=== PATIENT | male | born 1960 | race Caucasian/White ===

== ENCOUNTER 2017-11-27 15:59 | Day surgery (SDC) | payer MEDICARE, SELFPAY ==
[2017-11-27 16:13] VITALS: BP 107/87; PULSE 92; RESP 20; TEMP 36.4; O2SAT 93
[2017-11-27 16:16] VITALS: BP 107/87; PULSE 92; RESP 20; TEMP 36.4; O2SAT 93
--- NOTE | 2017-11-27 16:20 | PC.NURSE ---
gave sx to sx secretions
--- NOTE | 2017-11-27 16:48 | ED.ABDPAIN ---
HPI - Abdominal Pain General Chief Complaint: Abdominal Pain Stated Complaint: Food bolus stuck Time Seen by Provider: 11/27/17 16:48 Source: patient and EMS Mode of arrival: EMS Limitations: no limitations History of Present Illness HPI narrative: Patient is a 57-year-old male sent over from the [facility] for esophageal foreign body. Surgery is already made aware of the patient. Last night he was eating meat a large piece of pork which she felt has gotten stuck. He has been unable to swallow today he has tried to vomit several times but been unsuccessful. He does have a history of Parkinson's disease. At this time is he appears comfortable MD complaint: other (Esophageal foreign body) Related Data Home Medications Medication Instructions Recorded Confirmed amlodipine 5 mg PO DAILY 11/27/17 11/27/17 hydrochlorothiazide 25 mg PO DAILY 11/27/17 11/27/17 losartan 100 mg PO DAILY 11/27/17 11/27/17 sertraline 2 tab PO DAILY 11/27/17 11/27/17 tamsulosin 1 cap PO QPM 11/27/17 11/27/17 Previous Rx's Medication Instructions Recorded omeprazole 10 mg PO QDAY #90 cap 02/28/16 amantadine HCl 100 mg PO BID #180 cap 05/30/17 carbidopa-levodopa 1 tab PO SEE INSTRUCTIONS #360 tab 05/30/17 ropinirole 0.5 mg PO TID #275 tab 05/30/17 Allergies Allergy/AdvReac Type Severity Reaction Status Date / Time bee venom protein (honey bee) Allergy Unknown Verified 11/27/17 19:16 codeine Allergy Unknown Verified 11/27/17 19:17 Review of Systems Review of Systems All systems reviewed & are unremarkable except as noted in HPI and below Constitutional Denies chills, Denies fever(s), Denies lethargy and Denies weakness ENT Ears, Nose, Mouth, and Throat: Reports as per HPI Cardiovascular Denies dyspnea and Denies dyspnea on exertion Respiratory Denies cough, Denies dyspnea, Denies dyspnea on exertion and Denies wheezing Musculoskeletal Denies back pain, Denies muscle weakness, Denies numbness and Denies tingling Integumentary/Breasts Denies pruritus, Denies erythema, Denies rash and Denies wounds Neurologic Denies numbness, Denies tingling and Denies weakness Allergic/Immunologic Denies wheezing PFSH Medical History Parkinsons disease (Chronic) Family History Brother Cancer Father Cancer Social History Smoking Status: Current some day smoker alcohol intake: current substance use type: does not use Exam Initial Vital Signs Initial Vital Signs: Vital Signs Temperature 97.5 F L 11/27/17 16:13 Pulse Rate 92 H 11/27/17 16:13 Respiratory Rate 20 11/27/17 16:13 Blood Pressure 107/87 11/27/17 16:13 Pulse Oximetry 93 11/27/17 16:13 GENERAL: Alert well-appearing male in no acute distress has suction HEENT: Head atraumatic,EOMI, pupils reactive, CARDIOVASCULAR: Regular rate and rhythm without murmurs, rubs or gallops. RESPIRATORY: Breath sounds equal bilaterally, no wheezes rales or rhonchi. No stridor managing secretions ABDOMEN: Soft, nontender. Normoactive bowel sounds all 4 quadrants. No guarding or rebound. EXTREMITIES: Normal range of motion, no clubbing or edema. Neurovascularly intact NEUROLOGICAL: Alert and oriented x4.Normal gait and speech. SKIN: Warm, dry, no laceration, no petechiae, no rashes or lesions. Course Orders Ordered: Fentanyl (Sublimaze) 25 mcg IV Q5MIN PRN PRN Reason: Pain, Mild (1-3) Ondansetron HCl (Zofran) 4 mg IV NOW PRN PRN Reason: Nausea And Vomiting Discontinued Medications Lactated Ringer's (Lactated Ringers) 1,000 mls @ 42 mls/hr IV CONT MACIEJ Vital Signs - 8 hr 11/27/17 16:13 11/27/17 16:16 Temperature 97.5 F L 97.5 F L Pulse Rate 92 H 92 H Respiratory Rate 20 20 Blood Pressure 107/87 Blood Pressure [Left Arm] 107/87 Pulse Oximetry 93 93 MDM - Abdominal Pain MDM Narrative Medical decision making narrative: Dr. Langford made aware of patient's presence which he has accepted. In the ED to evaluate patient. Patient going to outpatient surgery. Discharge Plan Departure Patient Disposition: Admitted as Observation Clinical Impression: Esophageal foreign body Discharge Date/Time: 11/27/17 18:05 Interventions: ED Discharge Assessment Last Done: 11/27/17 18:02
--- NOTE | 2017-11-27 17:31 | PM.HP.1 ---
History of Present Illness Date Patient Seen: 11/27/17 Time Patient Seen: 17:10 Chief complaint: Food bolus stuck Narrative: Patient is a gentleman who was eating pork. At about 11 30 last night he had a piece tooth stuck in his esophagus. This is happened before. He has usually been able to cough and upper chart down but it is stated large. He is here for removal. He was transferred from the ER at [facility] to their lack of endoscopist. Patient History Medical History Parkinsons disease (Chronic) Family & Social History Social History: Smokes 5 cigarettes a day and has for very long time Meds Home Medications Medication Instructions Recorded Confirmed Type omeprazole 10 mg PO QDAY #90 cap 02/28/16 11/27/17 Rx amantadine HCl 100 mg PO BID #180 cap 05/30/17 11/27/17 Rx carbidopa-levodopa 1 tab PO SEE INSTRUCTIONS #360 tab 05/30/17 11/27/17 Rx ropinirole 0.5 mg PO TID #275 tab 05/30/17 11/27/17 Rx amlodipine 5 mg PO DAILY 11/27/17 11/27/17 History hydrochlorothiazide 25 mg PO DAILY 11/27/17 11/27/17 History losartan 100 mg PO DAILY 11/27/17 11/27/17 History sertraline 2 tab PO DAILY 11/27/17 11/27/17 History tamsulosin 1 cap PO QPM 11/27/17 11/27/17 History Allergies Allergy/AdvReac Type Severity Reaction Status Date / Time BEE VENOM Allergy Unknown Uncoded 07/04/17 12:10 CODEINE Allergy Unknown Uncoded 07/04/17 12:10 Review of Systems Review of Systems Patient denies double vision pain is eyes earache sore throat. He is missing his upper teeth and has trouble chewing because of that. No heart problems that he is aware of. He does have some respiratory issues and is about to undergo testing. No active cough or cold at this time. No black or bloody bowel movements. Last colonoscopy was 2 and half years ago. He had some polyps. No trouble urinating at this time. He is on an alpha boo however. No seizures or blackouts. Exam Vital Signs (past 8 hours): - 11/27/17 16:13 11/27/17 16:16 Temperature 97.5 F L 97.5 F L Pulse Rate 92 H 92 H Respiratory Rate 20 20 Blood Pressure 107/87 Blood Pressure [Left Arm] 107/87 Pulse Oximetry 93 93 Oxygen Delivery Method Room Air Narrative Exam Narrative: Operative gentleman no apparent distress. His eyes are nonicteric . pupils equal round react to light. Conjunctivae are pink. Ears without lesion. Nasal septum midline without polyps. Oral mucosa is dry. No upper teeth. Missing molars in the lower. There are no nodes in the neck or supraclavicular areas. Trachea is midline and mobile. Thyroid is not enlarged. There are no masses in the neck or thyroid. Lungs are clear to auscultation without rales or rhonchi. Increased expiratory phase. Equal percussion. Heart regular rate and rhythm without murmur gallop. No bruit in the neck. His abdomen is mildly protuberant soft. Liver and spleen are not enlarged. There are no ventral hernias. Patient is alert and oriented x3. Speech rate and content are appropriate. Affect is appropriate. Extraocular movements are intact times midline face is symmetric and uvula elevates in the midline. Patient has a tremor at rest. The right seems to be greater than the left. Assessment & Plan Plan: Assessment/Plan Narrative: Patient with an obstructed esophagus from food. Recommend EGD and possible dilatation. Would do this under general anesthesia to protect his airway as I often after irrigated out a great deal in order to flush this through. Also, when avoid getting food into his airway. Risks of bleeding and perforation were discussed. He appears to understand. Wishes to proceed. Parkinson's disease will continue his regular medication if he stays. If he is discharged tonight he can resume them at home. Hypertension same as above.
--- NOTE | 2017-11-27 18:06 | PM.PREOP ---
Pre-operative Note Interval Note Pre-op Check: Yes History & Physical exam performed today by Physician Changes: No
[2017-11-27 18:10] VITALS: BP 123/88; PULSE 79; RESP 16; TEMP 36.4; O2SAT 97
--- NOTE | 2017-11-27 19:00 | PM.OP.ENDO ---
Operative Date/Time/Diagnoses Date of procedure: 11/27/17 Time of procedure: 19:00 Pre-op diagnosis: Obstructed esophagus from food Post-op diagnosis: same (History of esophagus obstructed with food. Food had passed by the time the endoscope was placed) Procedure & Clinicians Study performed: EGD Same procedure as scheduled: Yes Indications: Obstructed esophagus by history. Surgeon: Gennaro Langford Procedure Notes SCOAP/Timeout: Perform Procedure in detail: The patient was placed supine on stretcher in the GI lab. He underwent general endotracheal anesthesia to protect his airway. A bite block was inserted adjacent to the ET tube and the scope was passed under direct vision into the esophagus. The esophagus was fairly normal. There was an area of ulceration in the distal esophagus at the GE junction located at about 34 cm from the incisors. This is probably where his food was lodged. It passed through by the time the scope was passed into his esophagus. I could see no evidence of a food bolus. The stomach insufflated well. There were no ulcerations. The pyloric channel was patent and the duodenum was normal to the 4th part. The scope was brought back into the stomach and retroflexed. Proximal stomach was normal in appearance. The patient was noted to have a small hiatal hernia. Scope was brought back through the esophagus and there was no evidence of any perforation. The GE junction was not particularly narrow as the scope passed easily through it with plenty of space decided. The scope was removed and the patient tolerated the procedure well. Scope withdrawal time: Not applicable Sedation minutes: 0 Findings: hiatal hernia (Very small) Specimen(s): none sent Complications: none Plan for aftercare: Cut up your food into very small bite size pieces before chewing and swallowing. Get your teeth fixed so that you have teeth to chew with. Follow up: as needed Disposition: PACU
[2017-11-27 19:37] VITALS: BP 100/69; PULSE 88; RESP 20; TEMP 36.1; O2SAT 96
--- NOTE | 2017-11-27 19:46 | SUR.PHASEII ---
IVF infused was 500ml. unable to chart IVF in [facility]
== END 2017-11-27 19:37 | disposition home or self-care (01) ==
LOC: ED 18:01 → OR 05-20 15:45
PROVIDERS: Emergency Provider Emergency Medicine; Visit Provider Specialist
PROC: 0DJ08ZZ Inspection of Upper Intestinal Tract, Via Natural or Artificial Opening Endoscopic (ICD-10-PCS; CPT 43235; principal; 2017-11-27 15:30)
DX: G20 Parkinson's disease (principal); F17.210 Nicotine dependence, cigarettes, uncomplicated; I10 Essential (primary) hypertension
CPT/HCPCS: 43235; 99283; 99285; J2704; J3010

== ENCOUNTER → 2020-07-20 09:54 | Outpatient (CLI) | payer MEDICARE, SELFPAY ==
--- NOTE | 2020-07-20 17:55 | DI.NM.S_ITS ---
DATE OF SERVICE: PROCEDURE: Pharmacological perfusion study. DATE OF STUDY: 07/20/2020 INDICATIONS: Shortness of breath, underlying COPD, hypertension, history of tobacco abuse. RADIOPHARMACEUTICAL: 25.8 millicurie technetium-99m Myoview IV was injected at stress and 10.8 millicurie technetium-99m Myoview IV was injected at rest. CARDIAC STRESS: The patient initially walked on [place] protocol. He could walk on the [place] protocol for only 1 minute and 59 seconds with maximum heart rate of 100 beats per minute, which was 63% of target heart rate. He became very short of breath and could not walk on the treadmill anymore. Hence, exercise stress test was converted to pharmacological stress test. The patient received IV Lexiscan as per standard protocol under the supervision of an attending staff. Initial blood pressure was 140/96. Maximum blood pressure 160/90. Baseline EKG revealed sinus rhythm. During stress no convincing ischemic changes or significant arrhythmias seen. There were some nonspecific ST changes. The patient did not have any chest pain. RAW DATA: There is increased subdiaphragmatic activity. GATED STUDY: Resting LV ejection fraction 68 and stress LV ejection fraction 81% without any obvious wall motion abnormalities. Resting end-diastolic volume 78 mL. TID ratio 0.95 which is within normal limits. Lung/heart ratio 0.40 which is within normal limits. MYOCARDIAL PERFUSION SCAN: Stress supine, resting supine and stress prone images were compared to each other. Stress supine and resting supine images revealed small to moderate size mild to moderately decreased perfusion of inferior wall, inferior apex and distal inferior lateral wall which got completely resolved during prone images suggestive of tissue attenuation artifact. No convincing reversible ischemia or infarction. CONCLUSION: I will call this study a normal myocardial perfusion study with evidence of diaphragmatic tissue attenuation artifact which got resolved during prone images. Prone images revealed normal myocardial perfusion. The patient has very poor exercise tolerance. He could not walk more than 1 minute and 59 seconds on the treadmill. Hence, he received IV Lexiscan and underwent pharmacological perfusion study. No convincing ischemic EKG changes. No significant arrhythmias. As far as perfusion scan is concerned, this is a low- risk myocardial perfusion scan. Arnold Rivera - CAITLIN/shavonne/jennifer doc#: [id number]/job#: [id number] dd: 07/20/2020 17:06:00 dt: 07/20/2020 17:49:00 DICTATING MD/COPIES TO: Laura Garrett MD COPIES MNE: STEFANIA;
== END ==
PROVIDERS: PCP Student in an Organized Health Care Education/Training Program; Referring Provider Student in an Organized Health Care Education/Training Program; Visit Provider Student in an Organized Health Care Education/Training Program
DX: R06.00 Dyspnea, unspecified (principal)
CPT/HCPCS: 78452; 93017; A9502; J2785